=== PATIENT | male | born 1985 | race Caucasian/White ===

== ENCOUNTER 2022-05-25 14:49 | Emergency (ER) | payer SELFPAY ==
[2022-05-25 14:55] VITALS: BP 153/105; PULSE 99; RESP 18; TEMP 36.8; O2SAT 95; BMI 44.4
--- NOTE | 2022-05-25 15:16 | ED_ITS ---
HPI - Allergic Reaction General: Chief complaint: Allergic Reaction Stated complaint: lip swelling Time Seen by Provider: 05/25/22 15:16 Source: patient Mode of arrival: ambulatory Limitations: no limitations History of Present Illness: HPI narrative: 36-year-old male presents emergency room with swollen inflamed upper lip. He noticed some sores on his upper lip and his mustache she has some crusting in that area as well. 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 Given neb. Not currently taking any of antibiotics. He denies any fever sweats or chills. Yesterday he was at work using some aluminum and wiped across his mouth with a glove. This morning he woke up there is significant swelling of the upper lip. He denies any difficulty breathing no stridor no wheezing. There is swelling of the upper lip but none of the tongue. MD complaint: allergic reaction Onset (ago): hour(s) Associated symptoms: Reports facial swelling and lip swelling; Deny abdominal pain, difficulty breathing, dysphagia, dizziness, hoarseness, itching, nausea, rash, tongue swelling or vomiting Severity: moderate Treatment prior to arrival: benadryl Previous Allergic Reaction History: none Review of Systems Const: Denies: fever(s), chills, body aches, change in appetite, fatigue or malaise ENMT: Denies: hoarseness Card: Denies: chest pain, edema, dyspnea on exertion or orthopnea Resp: Denies: dyspnea, productive cough or non-productive cough GI: Denies: abdominal pain, nausea, vomiting or dysphagia : Denies: flank pain, dysuria, urinary frequency or urinary urgency Skin/Breast: Denies: rash or pruritus Neuro: Denies: dizziness All/Imm: Reports: facial swelling; Denies: tongue swelling PFSH ED PFSH: Medical History (Updated 05/26/22 @ 14:49 by Raymundo Santos DO) No pertinent past medical history Surgical History (Updated 05/26/22 @ 14:49 by Raymundo Santos DO) No pertinent past surgical history Physical Exam Const: GENERAL APPEARANCE: cooperative and comfortable ORIENTATION/CONSCIOUSNESS: Yes awake, Yes oriented to person, Yes oriented to place and Yes oriented to time HENMT: COMMON NORMALS: normocephalic, atraumatic, external ears normal, EAC's normal, TM's normal bilaterally and Normal nasal mucous membranes and turbinates present HEAD & SCALP: normocephalic and atraumatic FACE & SINUS: edema (Swelling of the upper lip slightly greater on the right side than the left ) NOSE: Normal nasal mucous membranes and turbinates present EXTERNAL EAR: Yes external ears normal EXTERNAL AUDITORY CANAL: EAC's normal TYMPANIC MEMBRANE: TM's normal bilaterally OTHER: Significant swelling of the upper lip more so on the right than the left there is some logn crusting just under the nose with some excoriated areas. Eye: COMMON NORMALS: Equal, round and reactive pupils present, EOMs intact bilaterally, conjunctivae normal and no scleral icterus CONJUNCTIVA: Yes conjunctivae normal PUPIL: Yes Equal, round and reactive pupils present Neck/C-Spine: COMMON NORMALS: full ROM, no lymphadenopathy, supple and no JVD Resp: COMMON NORMALS: normal respiratory effort, No retractions, No use of accessory muscles and clear to auscultation bilaterally AUSCULTATION: clear to auscultation bilaterally Cardio: COMMON NORMALS: no JVD, regular rate, regular rhythm and No murmurs present (Cardio) RATE: regular rate RHYTHM: regular rhythm GI: COMMON NORMALS: Soft to palpation and No hepatosplenomegaly present AUSCULTATION: Yes normoactive bowel sounds PALPATION: Yes Soft to palpation, No Tenderness to palpation present (GI), No Guarding due to palpation present (GI) and Yes No hepatosplenomegaly present Extremity: COMMON NORMALS: normal to inspection, capillary refill normal, no clubbing, cyanosis or edema, no calf tenderness and no pedal edema Neuro: SENSORIUM/ORIENTATION: Yes oriented to person, Yes oriented to place and Yes oriented to time Skin: OTHER: Long crusted lesions of the upper lip consistent with staph infection. Course Vital Signs: Vital signs: Vital Signs Temperature 97.8 F 05/25/22 17:18 Pulse Rate 81 05/25/22 17:18 Respiratory Rate 17 05/25/22 17:18 Blood Pressure 148/86 05/25/22 17:18 Pulse Oximetry 96 05/25/22 17:18 Oxygen Delivery Me thod 05/25/22 14:55 MDM - Allergic Reaction Medical Decision Making Cellulitis. Suspect staph. Given vancomycin and started on Bactrim also put him on prednisone and hydroxyzine can use ice recheck with primary care doctor in the next few days if is worsening or change symptoms return. Cultures obtained as well. Medical Records I reviewed the patient's medical records. Lab Data I reviewed the patient's lab results. : 05/25/22 15:38 05/25/22 15:38 Laboratory Results WBC 16.7 10^3/uL (4.0-10.0) H 05/25/22 15:38 RBC 5.25 10^6/uL (4.1-5.3) 05/25/22 15:38 Hgb 15.9 g/dL (11.7-16.6) 05/25/22 15:38 Hct 49.5 % (42.0-52.0) 05/25/22 15:38 MCV 94.3 fl (80-94) H 05/25/22 15:38 MCH 30.3 pg (28.0-34.0) 05/25/22 15:38 MCHC 32.1 g/dL (30.0-36.0) 05/25/22 15:38 RDW 12.3 % (12.1-15.1) 05/25/22 15:38 Plt Count 195 10^3/cmm (130-400) 05/25/22 15:38 MPV 12.1 fL (7.4-10.4) H 05/25/22 15:38 Neut % (Auto) 77.7 % 05/25/22 15:38 Lymph % (Auto) 11.5 % 05/25/22 15:38 [place] % (Auto) 8.8 % 05/25/22 15:38 Eos % (Auto) 1.3 % 05/25/22 15:38 Baso % (Auto) 0.2 % 05/25/22 15:38 Neut # (Auto) 12.99 10^3/uL (1.8-7.7) H 05/25/22 15:38 Lymph # (Auto) 1.9 10^3/uL (0.8-4.8) 05/25/22 15:38 [place] # (Auto) 1.5 10^3/uL (0.2-0.9) H 05/25/22 15:38 Eos # (Auto) 0.2 10^3/uL (0.0-0.8) 05/25/22 15:38 Baso # (Auto) 0.0 10^3/uL (0.0-0.1) 05/25/22 15:38 Nucleated RBC % (auto) 0 % 05/25/22 15:38 Nucleated RBCs # 0.0 /100WBC 05/25/22 15:38 Sodium Cancelled 05/25/22 15:38 Potassium Cancelled 05/25/22 15:38 Chloride Cancelled 05/25/22 15:38 Carbon Dioxide Cancelled 05/25/22 15:38 Anion Gap Cancelled 05/25/22 15:38 BUN Cancelled 05/25/22 15:38 Creatinine Cancelled 05/25/22 15:38 GFR Calculation Cancelled 05/25/22 15:38 Glucose Cancelled 05/25/22 15:38 Calculated Osmolality Cancelled 05/25/22 15:38 Calcium Cancelled 05/25/22 15:38 Discharge Plan Discharge Patient Disposition: Home Clinical Impression: Cellulitis of lip Condition: Stable Prescriptions: New Bactrim DS 800-160 mg tablet 1 tab PO BID 10 Days Qty: 20 0RF prednisone 20 mg tablet 20 mg PO TID Qty: 15 0RF Rx Instructions: 1 p.o. 3 times daily x3 days, 1 p.o. twice daily x2 days, 1 p.o. 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
[2022-05-25 15:48] LABS: Basophils % 0.2 %; Eosinophils # 0.2 10^3/uL (0.0-0.8); Eosinophils % 1.3 %; Hematocrit 49.5 % (42.0-52.0); Hemoglobin 15.9 g/dL (11.7-16.6); Lymphocytes # 1.9 10^3/uL (0.8-4.8); Lymphocytes % 11.5 %; Mean Corpuscular HGB Conc 32.1 g/dL (30.0-36.0); Mean Corpuscular Hemoglobin 30.3 pg (28.0-34.0); Mean Corpuscular Volume 94.3 fl (80-94); Mean Platelet Volume 12.1 fL (7.4-10.4); Monocytes # 1.5 10^3/uL (0.2-0.9); Monocytes % 8.8 %; Neutrophils # 12.99 10^3/uL (1.8-7.7); Neutrophils % 77.7 %; Nucleated Red Blood Cells % 0 %; Platelet Count 195 10^3/cmm (130-400); Red Blood Count 5.25 10^6/uL (4.1-5.3); Red Cell Distribution Width 12.3 % (12.1-15.1); White Blood Count 16.7 10^3/uL (4.0-10.0)
[2022-05-25] MEDS: diphenhydrAMINE 50 mg/mL SDV 1mL IVP (16:09)
[2022-05-25] MEDS: vancomycin 1,000 MG in sodium chloride 0.9% 250 ML 250 MG IV (16:20)
[2022-05-25 17:18] VITALS: BP 148/86; PULSE 81; RESP 17; TEMP 36.6; O2SAT 96
== END 2022-05-25 17:33 | disposition home or self-care (01) ==
PROVIDERS: Emergency Provider Family Medicine
DX: K13.0 Diseases of lips (principal)
CPT/HCPCS: 36415; 85025; 87040; 96365; 96375; 99284; J1200; J2930; J3370; J7050

== ENCOUNTER 2022-05-28 10:43 | Inpatient (IN) | payer SELFPAY ==
[2022-05-28 11:12] VITALS: BP 148/94; PULSE 110; RESP 18; TEMP 36.8; O2SAT 97; BMI 34.8
[2022-05-28 13:32] LABS: Basophils # 0.1 10^3/uL (0.0-0.1); Basophils % 0.2 %; Hematocrit 59.1 % (42.0-52.0); Hemoglobin 19.1 g/dL (11.7-16.6); Lymphocytes % 9.1 %; Mean Corpuscular HGB Conc 32.3 g/dL (30.0-36.0); Mean Corpuscular Hemoglobin 30.4 pg (28.0-34.0); Mean Corpuscular Volume 94.1 fl (80-94); Mean Platelet Volume 10.4 fL (7.4-10.4); Monocytes # 1.5 10^3/uL (0.2-0.9); Neutrophils # 18.15 10^3/uL (1.8-7.7); Neutrophils % 82.7 %; Nucleated Red Blood Cells % 0 %; Platelet Count 306 10^3/cmm (130-400); Red Blood Count 6.28 10^6/uL (4.1-5.3); Red Cell Distribution Width 12.2 % (12.1-15.1)
--- NOTE | 2022-05-28 13:40 | CT_ITS ---
WS: [id number] CT FACIAL BONES with contrast HISTORY: cellulitis, upper lip inflammation. TECHNIQUE: Images obtained from the supraorbital location through the mandible. Soft tissue and bone windows are reviewed. Coronal and sagittal reformats have also been submitted. Contrast: Omnipaque 350; 50 mL IV. DLP: 669.[address] scans at [facility] use at least one of these dose optimization techniques: automated e xposure control; mA and/or kV adjustment per patient size (includes targeted exams where dose is matc hed to clinical indication); or iterative reconstruction. COMPARISON: None available. Significant soft tissue inflammation over the upper lip and greatest to the RIGHT of midline. Marked soft tissue thickening and inflammation but no definite abscess. No adjacent dental caries is identif ied. Soft tissue inflammation extends superiorly into the base of the nasal cavity. No osseous destru ction. No bone destruction and no evidence for osteomyelitis. No air-fluid levels within the adjacent sinuse s. Small level 1 and level [address]/CT facial bones w con [id number] IMPRESSION: 1. Significant soft tissue inflammation without an abscess centered along the RIGHT upper lip. 2. No underlying dental caries identified. 3. No sinus disease. 4. Small level 1 and level 2 lymph nodes.
--- NOTE | 2022-05-28 13:46 | W.ED.GENADLT ---
HPI - General Adult General: Chief complaint: General Medical Stated complaint: cellulitis of lip, return trip Time Seen by Provider: 05/28/22 13:00 Source: patient Mode of arrival: ambulatory History of Present Illness: 36-year-old male who was seen in the emergency room several days ago. He had a large flame swollen upper lip at that time. He had some areas that look like he had a staph infection in the upper lip and his mustache with some long crusting we started him on Bactrim he was concerned he had an allergic reaction so we also did put him on a short course of steroids. He has had subjective sweats chills and fever since then he is a little bit tachycardic on arrival here the swelling in his lip is more defined now than it was not on gross appearance I suspect he has an abscess. He has been taking the oral antibiotics he was prescribed. He has noticed other areas that have come up since then 1 on the left lower flank another early lesion periumbilical at about the 10 to 11 o'clock position 2 inches from the umbilicus and then 1 on his left second toe. Denies any use of IV drugs. Onset (ago): day(s) Location: face, abdomen and lower extremity (Left second toe) Radiation: non-radiation Severity: severe Quality: aching Pain Consistency: constant Relieving factors: none Exacerbating factors: none Associated symptoms: Reports fevers/chills, malaise, nausea and rash; Deny chest pain, confusion, cough, diaphoresis, decreased appetite, dyspnea, headache(s), palpitations, seizures, short of breath, syncope, vomiting or weakness Treatments prior to arrival: other (Oral antibiotics) Review of Systems Const: Reports: fever(s), chills and malaise; Denies: fatigue or diaphoresis ENMT: Denies: throat pain, ear or mastoid pain, nasal discharge or nasal congestion Card: Denies: chest pain, palpitations or syncope Resp: Denies: dyspnea or productive cough GI: Reports: nausea; Denies: abdominal pain, vomiting or diarrhea : Denies: flank pain, difficulty urinating, dysuria, urinary frequency or urinary urgency Musc: Denies: neck pain or back pain Skin/Breast: Reports: rash Neuro: Denies: headache(s) or confusion PFSH ED PFSH: Medical History H/O intravenous drug use in remission Hepatitis C Smoking Surgical History History of ankle surgery Family History Other No significant family history Social History Smoking and tobacco status: current every day smoker Alcohol intake: never Substance/Drug Use: former Other details last substance use: Remote use, lapsed recently once in the last 3 years Lives independently: Yes Household members: none Current occupational status: employed Physical Exam Const: GENERAL APPEARANCE: cooperative and comfortable ORIENTATION/CONSCIOUSNESS: Yes awake, Yes oriented to person, Yes oriented to place and Yes oriented to time HENMT: OTHER: Marked swelling with more palpable fluctuant like mass in the upper lip to the right of the midline there is long crusting across the lip and the facial hair no active drainage. Resp: COMMON NORMALS: normal respiratory effort, No retractions, No use of accessory muscles and clear to auscultation bilaterally AUSCULTATION: clear to auscultation bilaterally Cardio: COMMON NORMALS: regular rate, regular rhythm and No murmurs present (Cardio) RATE: regular rate RHYTHM: regular rhythm GI: COMMON NORMALS: Soft to palpation and No hepatosplenomegaly present AUSCULTATION: Yes normoactive bowel sounds PALPATION: Yes Soft to palpation, No Tenderness to palpation present (GI), No Guarding due to palpation present (GI) and Yes No hepatosplenomegaly present Neuro: SENSORIUM/ORIENTATION: Yes oriented to person, Yes oriented to place and Yes oriented to time Skin: COMMON NORMALS: no rashes or lesions noted GENERAL SKIN EXAM: no rashes or lesions noted Course Vital Signs: Vital signs: Vital Signs Temperature 98.1 F 05/31/22 04:00 Pulse Rate 79 05/31/22 04:00 Respiratory Rate 16 05/31/22 06:13 Blood Pressure 130/94 05/31/22 04:00 Pulse Oximetry 95 05/31/22 04:00 Oxygen Delivery Me thod 05/31/22 04:00 MDM - General Adult Medical Decision Making Failed outpatient therapy will admit for IV antibiotics. Discussed with hospitalist orders written Medical Records I reviewed the patient's medical records. Lab Data I reviewed the patient's lab results. : 05/30/22 01:30 05/30/22 01:[address] 05/28/22 13:40 IMPRESSION: 1. Significant soft tissue inflammation without an abscess centered along the RIGHT upper lip. 2. No underlying dental caries identified. 3. No sinus disease. 4. Small level 1 and level 2 lymph nodes. Chest X-Ray 05/28/22 17:39 IMPRESSION: Unremarkable chest radiograph. Soft Tissue Ultrasound 05/29/22 13:24 IMPRESSION: 1. No abscess. 2. There is a small phlegmonous with a soft tissue tract in the LEFT lower quadrant subcutaneous soft tissue. Phlegmonous collection measures 1.1 x 0.6 cm. Laboratory Results WBC 22.0 10^3/uL (4.0-10.0) H 05/28/22 13:16 RBC 6.28 10^6/uL (4.1-5.3) H 05/28/22 13:16 Hgb 19.1 g/dL (11.7-16.6) H 05/28/22 13:16 Hct 59.1 % (42.0-52.0) H 05/28/22 13:16 MCV 94.1 fl (80-94) H 05/28/22 13:16 MCH 30.4 pg (28.0-34.0) 05/28/22 13:16 MCHC 32.3 g/dL (30.0-36.0) 05/28/22 13:16 RDW 12.2 % (12.1-15.1) 05/28/22 13:16 Plt Count 306 10^3/cmm (130-400) 05/28/22 13:16 MPV 10.4 fL (7.4-10.4) 05/28/22 13:16 Neut % (Auto) 82.7 % 05/28/22 13:16 Lymph % (Auto) 9.1 % 05/28/22 13:16 [place] % (Auto) 7.0 % 05/28/22 13:16 Eos % (Auto) 0.0 % 05/28/22 13:16 Baso % (Auto) 0.2 % 05/28/22 13:16 Neut # (Auto) 18.15 10^3/uL (1.8-7.7) H 05/28/22 13:16 Lymph # (Auto) 2.0 10^3/uL (0.8-4.8) 05/28/22 13:16 [place] # (Auto) 1.5 10^3/uL (0.2-0.9) H 05/28/22 13:16 Eos # (Auto) 0.0 10^3/uL (0.0-0.8) 05/28/22 13:16 Baso # (Auto) 0.1 10^3/uL (0.0-0.1) 05/28/22 13:16 Nucleated RBC % (auto) 0 % 05/28/22 13:16 Nucleated RBCs # 0.0 /100WBC 05/28/22 13:16 Sodium 136 mmol/L (136-145) 05/28/22 15:02 Potassium 4.1 mmol/L (3.5-5.1) 05/28/22 15:02 Chloride 100 mmol/L (98-107) 05/28/22 15:02 Carbon Dioxide 25 mmol/L (22-29) 05/28/22 15:02 Anion Gap 15.1 (5-19) 05/28/22 15:02 BUN 12 mg/dL (6-20) 05/28/22 15:02 Creatinine 0.8 mg/dL (0.7-1.2) 05/28/22 15:02 GFR Calculation 109.4 mL/min (90-130) 05/28/22 15:02 Glucose 166 mg/dL (65-115) H 05/28/22 15:02 Estimat Average Glucose 117 05/28/22 13:16 Hemoglobin A1c 5.7 % (4.0-6.0) 05/28/22 13:16 Calculated Osmolality 286 mOsm/kg (285-295) 05/28/22 15:02 Calcium 8.1 mg/dL (8.5-10.5) L 05/28/22 15:02 C-Reactive Protein 3.0 mg/L (0.0-4.9) 05/28/22 15:02 Discharge Plan Discharge Patient Disposition: Admitted As Inpatient Admit Provider: Low Celis Clinical Impression: Cellulitis of lip, H/O intravenous drug use in remission Condition: Stable Coding Level of Care Code 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
[2022-05-28] MEDS: iohexol 350 mg/mL 100 mL Btl IV (14:32)
[2022-05-28 15:29] LABS: Blood Urea Nitrogen 12 mg/dL (6-20); Calcium 8.1 mg/dL (8.5-10.5); Carbon Dioxide 25 mmol/L (22-29); Chloride 100 mmol/L (98-107); Creatinine Clr Calc Pharmacy 149.1194; Glomerular Filtration Rate 109.4 mL/min (90-130); Glucose 166 mg/dL (65-115); Osmolality Calculated 286 mOsm/kg (285-295); Sodium 136 mmol/L (136-145)
[2022-05-28 15:35] LABS: Anion Gap 15.1 (5-19); Potassium 4.1 mmol/L (3.5-5.1)
[2022-05-28] MEDS: ibuprofen 600 mg Tablet PO (17:19)
--- NOTE | 2022-05-28 17:21 | PM.HP ---
Providers/Chief Complaint Admitting Physician: Low Celis Chief Complaint: cellulitis of lip, return trip History of Present Illness Pleasant 36-year-old gentleman smoker of about half pack per day, with hepatitis C reports not yet treated, history of IV methamphetamine use disorder, remote, but states had 1 relapse within the last 3 years, sometime recently but states more remote than his current symptoms of painful swelling, erythema, some crusting of the upper lip, started on the left side, progressed across the midline to the right side, for which he had received prescription for Bactrim, prednisone during ER visit on 05/25, states started Bactrim on Saturday, has not seen very significant improvement. Initial swelling and inflammation appears to have started after possibly rubbing a glove with aluminum shavings at work across his upper lip. Denies any prior significant skin infections. Denies diabetes. With regards to injection methamphetamine use, was injected into the right arm in the past. States he is not currently sexually active. Denies any contacts who have similar infection. Denies any travel. Since his last visit he has now also developed 2 lesions on right and left sides of his abdomen, pustular in appearance, as well as additional lesion near the base of his second left toe. He reports feeling subjective fever, sweats, chills, was not measured temperature. He is afebrile here, but with leukocytosis 21,000, predominantly neutrophilic, as well as pulse 110. Denies history of diabetes. Glucose is 166. Face CT with significant soft tissue inflammation without an abscess centered along the right upper lip. No underlying dental caries. No sinus disease. Small level 1 and level 2 lymph nodes. Review of Systems Const: Reports: chills, malaise and night sweats; Denies: fever(s) Eyes: Denies: change in vision, eye discomfort or eye redness ENMT: Reports: swelling of lips/tongue (upper lip); Denies: throat pain, oral sores or ear or mastoid pain Card: Denies: chest pain, edema, pre-syncope or dyspnea on exertion Resp: Denies: dyspnea, productive cough, change in phlegm color or hemoptysis GI: Denies: abdominal pain, nausea, vomiting, diarrhea, constipation, hematochezia or melena : Denies: flank pain, difficulty urinating, urinary frequency or hematuria Musc: Denies: back pain, joint swelling or joint redness Skin/Breast: Reports: rash, erythema, skin tenderness, skin swelling, sores and new lesions Neuro: Denies: headache(s), numbness in extremities, weakness in extremities, dizziness, confusion or seizure-like activity Endo: Denies: polyuria or polydipsia Boris/Lymph: Denies: easy bleeding or tender lymph nodes All/Imm: Denies: urticaria or tongue swelling Medications/Allergies Home Medications Medication Instructions Recorded Confirmed Last Taken Type hydroxyzine HCl 25 mg tablet 25 mg PO QID PRN itching/swelling 05/25/22 05/28/22 Unknown Rx #20 tabs prednisone 20 mg tablet 20 mg PO TID #15 tabs 05/25/22 05/28/22 05/28/22 Rx sulfamethoxazole 800 1 tab PO BID 10 days #20 tabs 05/25/22 05/28/22 05/28/22 Rx mg-trimethoprim 160 mg tablet (Bactrim DS) cyclobenzaprine 10 mg tablet 10 mg PO TID PRN Muscle Spasm 05/28/22 05/28/22 Unknown History PFSH Acute PFSH: Medical History H/O intravenous drug use in remission Hepatitis C Smoking Surgical History History of ankle surgery Family History (Updated 05/28/22 @ 17:26 by Low Celis MD) Other No significant family history Social History (Updated 05/28/22 @ 17:28 by Low Celis MD) Smoking and tobacco status: current every day smoker Alcohol intake: never Substance/Drug Use: former Other details last substance use: Remote use, lapsed recently once in the last 3 years Lives independently: Yes Household members: none Current occupational status: employed Vitals/I&O/Wt Last Vital Signs Temp 98.2 F 05/28/22 11:12 Pulse 110 H 05/28/22 11:12 Resp 18 05/28/22 11:12 BP 148/94 05/28/22 11:12 Pulse Ox 97 05/28/22 11:12 O2 Del Method 05/28/22 11:12 Weight last 48 hrs Weight 103.873 kg Physical Exam Const: COMMON NORMALS: patient oriented x3 and alert GENERAL APPEARANCE: cooperative ORIENTATION/CONSCIOUSNESS: Yes awake HENMT: COMMON NORMALS: oropharynx normal Neck/C-Spine: COMMON NORMALS: no JVD Resp: COMMON NORMALS: normal respiratory effort and clear to auscultation bilaterally AUSCULTATION: clear to auscultation bilaterally Cardio: COMMON NORMALS: no JVD, regular rhythm, S1 normal heart sound present, S2 normal heart sound present and No murmurs present (Cardio) RHYTHM: regular rhythm HEART SOUNDS: S1 normal heart sound present and S2 normal heart sound present GI: COMMON NORMALS: Normal to inspection, nondistended, normoactive bowel sounds present, Soft to palpation and non-tender PALPATION: Yes Soft to palpation Extremity: COMMON NORMALS: no joint enlargement and no pedal edema Neuro: COMMON NORMALS: patient oriented x3 and moves all extremities SENSORIUM/ORIENTATION: Yes alert Skin: GENERAL SKIN EXAM: no rashes or lesions noted OTHER: Swelling, mild erythema, mild scaling of upper lip mostly toward the center, slightly more to the right. Small aphthous ulcer behind upper incisors. Small pustular deroofed lesions right and left mid abdomen up to 1 cm in size. No significant surrounding erythema, no fluctuance. Small shallow ulceration with some sanguinous discharge dorsal medial aspect of proximal second left toe. Data : 05/28/22 13:16 05/28/22 15:02 A&P Assessment and plan (1) Cellulitis of lip: Possible sepsis with neutrophilic leukocytosis 22,000, sinus tachycardia 110. Appears to not have responded to outpatient antibiotics treatment with Bactrim since Saturday. Collect blood culture. IV antibiotics with vancomycin, cefepime. Appears to have hyperglycemia, difficult to tell at this time whether diabetes are secondary to steroid. Check A1c. Possible staphylococcal infection. Reported some impetiginous changes previously. Additionally history of injection methamphetamine use, check HIV. Concern for possible bacteremia with multifocal lesions. Reassess blood cultures. Collect wound culture from abdominal lesions which appear more pustular. Additionally collect viral culture. Collect monitor pox PCR. Isolation. (2) Pustular lesion: On the abdomen, as well as additional more flat lesion on proximal dorsal medial second left toe. (3) Smoking: Smoking addiction, discussed with him regarding cessation. Nicotine replacement as needed. (4) H/O intravenous drug use in remission: Reports remote history of IV substance use disorder, used to inject methamphetamine into the arm. Reports has had 1 relapse fairly recently, but before any of the other symptoms currently started. Reports has had only 1 relapse in the last 3 years. Has active hepatitis C not yet treated. Discussed with him regarding assessing HIV Plan Hepatitis C: Will need follow-up for treatment. Attestations Medical Necessity Statement*: Admission of over 2 midnights anticipated for assessment of management of unresolving area of cellulitis, possible sepsis, with new lesions on the abdomen, second left toe. 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
[2022-05-28 17:39] VITALS: BP 158/110; PULSE 88; RESP 16; TEMP 36.4; O2SAT 97
--- NOTE | 2022-05-28 17:39 | XR_ITS ---
WS: [id number] Exam: XR chest 1V portable [id number] Date/Time of Exam: 05/28/2022 6:00 PM Reason For Exam: Subjective fever, leukocytosis, tachycardia, wheeze No priors. Findings: The lungs are clear and fully expanded. Costophrenic angles are sharp. No infiltrates. Bronchovascula r relief appears normal. Cardiac silhouette is unremarkable. Bony elements are intact. XR/XR chest 1V portable [id number] IMPRESSION: Unremarkable chest radiograph.
[2022-05-28 17:55] VITALS: BMI 43.2
[2022-05-28] MEDS: nicotine 14 mg Patch 1 PATCH TRANSDERMA (18:50)
[2022-05-28] MEDS: cefepime 2,000 MG in sodium chloride 0.9% (plus) 50 ML 100 MG IV (18:51)
[2022-05-28] MEDS: lactated ringers 1,000 ML 100 ML IV (18:51)
[2022-05-28 19:39] LABS: Estmated Average Glucose 117; Hemoglobin A1C 5.7 % (4.0-6.0)
[2022-05-28 20:00] VITALS: BP 130/83; PULSE 97; RESP 17; TEMP 36.6; O2SAT 98
[2022-05-28 21:32] LABS: Lactic Sepsis W/Reflex 1.9 mmol/L (0.5-2.2)
[2022-05-28 22:35] LABS: HIV 1 & 2 Antibody Non-Reactive (Non-Reactiv); HIV 1 & 2 Antigen Non-Reactive (Non-Reactiv)
[2022-05-29] VITALS (9 sets, daily range): BP systolic 133–159; BP diastolic 81–98; PULSE 71–103; RESP 15–20; TEMP 36.3–37.1; O2SAT 95–98
[2022-05-29] MEDS: morphine 4 mg/mL SDV 1 mL IVP ×2 (02:29→21:05)
[2022-05-29] MEDS: ibuprofen 600 mg Tablet PO ×4 (03:22→22:19)
[2022-05-29] MEDS: cefepime 2,000 MG in sodium chloride 0.9% (plus) 50 ML 100 MG IV ×2 (06:05→18:54)
[2022-05-29] MEDS: lactated ringers 1,000 ML 100 ML IV (06:05)
--- NOTE | 2022-05-29 13:23 | PM.PN ---
Subjective Subjective: He is feeling somewhat congested around the front part of his face, still pain at the swelling of his upper lip. Perhaps slightly better than yesterday. Discussed with him results of CT of the face. Discussed with him to request for lidocaine, discussed concern regarding opioid use given past history of IV drug use disorder. Discussed risks. In case we cannot manage pain with conservative agents, possibly then may have no choice to use opioids. Unable to get blood draw this morning despite multiple sticks, deferred until tomorrow. Vitals/I&O/Wt Last Vital Signs Temp 97.9 F 05/29/22 11:08 Pulse 96 05/29/22 11:08 Resp 18 05/29/22 11:08 BP 159/94 05/29/22 11:08 Pulse Ox 95 05/29/22 11:08 O2 Del Method 05/29/22 11:08 05/28/22 05/29/22 05/29/22 22:59 06:59 14:59 Intake Total 540 / 540 1300 / 1840 360 / 360 Balance 540 / 540 1300 / 1840 360 / 360 Weight last 48 hrs Weight 129.092 kg Weight 103.873 kg Physical Exam Const: COMMON NORMALS: patient oriented x3 and alert GENERAL APPEARANCE: cooperative ORIENTATION/CONSCIOUSNESS: Yes awake HENMT: COMMON NORMALS: oropharynx normal Neck/C-Spine: COMMON NORMALS: no JVD Resp: COMMON NORMALS: normal respiratory effort and clear to auscultation bilaterally AUSCULTATION: clear to auscultation bilaterally Cardio: COMMON NORMALS: no JVD, regular rhythm, S1 normal heart sound present, S2 normal heart sound present and No murmurs present (Cardio) RHYTHM: regular rhythm HEART SOUNDS: S1 normal heart sound present and S2 normal heart sound present GI: COMMON NORMALS: Normal to inspection, nondistended, normoactive bowel sounds present, Soft to palpation and non-tender PALPATION: Yes Soft to palpation Extremity: COMMON NORMALS: no joint enlargement and no pedal edema Neuro: COMMON NORMALS: patient oriented x3 and moves all extremities SENSORIUM/ORIENTATION: Yes alert Skin: COMMON NORMALS: no rashes or lesions noted GENERAL SKIN EXAM: no rashes or lesions noted OTHER: Swelling, mild erythema, mild scaling of upper lip mostly toward the center, slightly more to the right. Small aphthous ulcer behind upper incisors. Small pustular deroofed lesions right and left mid abdomen up to 1 cm in size. No significant surrounding erythema, no fluctuance. 5mm shallow ulceration with some sanguinous discharge dorsal medial aspect of proximal second left toe. Data : 05/28/22 13:16 05/28/22 15:02 Micro: Microbiology 05/28/22 20:28 Blood Culture - Preliminary Blood SPECIMEN COLLECTED A&P Assessment and plan (1) Cellulitis of lip: Could not get blood draw today, but tachycardia with improvement. Possible sepsis with improvement. Persistent swelling of upper lip, no abscess. Pustular lesions on the abdomen, left side abdomen somewhat more engorged, will assess with ultrasound to exclude underlying pus collection. Additional lesion on second left toe with shallow ulceration, purulent discharge. Follow blood culture. IV antibiotics with vancomycin, cefepime. Appears to have hyperglycemia likely secondary to steroid. Normal A1c. Suspected staphylococcal infection. Reported some impetiginous changes at the beginning. Additionally history of injection methamphetamine use, check HIV. Concern for possible bacteremia with multifocal lesions. Reassess blood cultures. Collect wound culture from abdominal lesions which appear more pustular. Additionally collect viral culture. Less likely monkey pox, Orthopox PCR pending. Isolation. (2) Pustular lesion: On the abdomen, as well as additional more flat lesion on proximal dorsal medial second left toe. (3) Smoking: Smoking addiction, discussed with him regarding cessation. Nicotine replacement as needed. (4) H/O intravenous drug use in remission: Reports remote history of IV substance use disorder, used to inject methamphetamine into the arm. Reports has had 1 relapse fairly recently, but before any of the other symptoms currently started. Reports has had only 1 relapse in the last 3 years. Has active hepatitis C not yet treated. HIV antibody nonreactive. PCR pending. Plan Hepatitis C: Will need follow-up for treatment. Attestations Medical Necessity Statement*: Continue admission for assessment of persistent cellulitis, multifocal purulent lesions, without response to outpatient antibiotic treatment. 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
--- NOTE | 2022-05-29 13:24 | US_ITS ---
WS: [id number] ULTRASOUND SOFT TISSUES LEFT lower quadrant abdomen. HISTORY: L side abd wall pustule - assess for any pus pocket COMPARISON: None available. TECHNIQUE: 2-D and color Doppler imaging is submitted. At the level of the iliac crest there is an open wound. There is a soft tissue tract containing a sma ll amount of fluid extending 2 cm deep. The entire collection measures 1.6 x 1.8 x 2.0 cm. Mild phleg monous formation just beneath the subcutaneous layer measures 1.1 x 0.6 cm. The soft tissue tract ext ends deep from the phlegmon. US/US soft tissue/extremity 45351 IMPRESSION: 1. No abscess. 2. There is a small phlegmonous with a soft tissue tract in the LEFT lower maria fernanda drant subcutaneous soft tissue. Phlegmonous collection measures 1.1 x 0.6 cm.
[2022-05-29] MEDS: nicotine 14 mg Patch 1 PATCH TRANSDERMA (18:30)
--- NOTE | 2022-05-29 18:32 | PC.NURSE ---
pt slept nearly all day only awke for meals and bathroom ...was given prn ibuprofen 2 x this shift and lidcaine jelly 1x tis shift...these appeaed to allivate his pain
[2022-05-30] VITALS (11 sets, daily range): BP systolic 138–171; BP diastolic 76–109; PULSE 77–102; RESP 16–18; TEMP 36.6–36.9; O2SAT 97–98
[2022-05-30 01:40] LABS: Basophils % 0.3 %; Eosinophils # 0.2 10^3/uL (0.0-0.8); Eosinophils % 1.5 %; Hematocrit 50.5 % (42.0-52.0); Hemoglobin 16.3 g/dL (11.7-16.6); Lymphocytes # 2.7 10^3/uL (0.8-4.8); Lymphocytes % 18.5 %; Mean Corpuscular HGB Conc 32.3 g/dL (30.0-36.0); Mean Corpuscular Hemoglobin 30.4 pg (28.0-34.0); Mean Platelet Volume 10.1 fL (7.4-10.4); Monocytes # 1.1 10^3/uL (0.2-0.9); Monocytes % 7.6 %; Neutrophils # 10.61 10^3/uL (1.8-7.7); Neutrophils % 71.5 %; Nucleated Red Blood Cells % 0 %; Platelet Count 250 10^3/cmm (130-400); Red Blood Count 5.37 10^6/uL (4.1-5.3); Red Cell Distribution Width 12.1 % (12.1-15.1); White Blood Count 14.8 10^3/uL (4.0-10.0)
[2022-05-30 02:03] LABS: Vancomycin Trough 10.1 ug/mL (10-15)
[2022-05-30 02:04] LABS: Alanine Aminotransferase 42 U/L (0-41); Albumin Level 3.3 g/dL (3.5-5.2); Alkaline Phosphatase 72 U/L (40-130); Anion Gap 14.9 (5-19); Aspartate Amino Transferase 12 U/L (0-40); Blood Urea Nitrogen 13 mg/dL (6-20); Calcium 8.7 mg/dL (8.5-10.5); Carbon Dioxide 25 mmol/L (22-29); Chloride 103 mmol/L (98-107); Glomerular Filtration Rate 152.4 mL/min (90-130); Glucose 154 mg/dL (65-115); Osmolality Calculated 291 mOsm/kg (285-295); Potassium 3.9 mmol/L (3.5-5.1); Sodium 139 mmol/L (136-145); Total Bilirubin 0.5 mg/dL (0.15-1.2); Total Protein 6.3 g/dL (6.6-8.7)
[2022-05-30] MEDS: morphine 4 mg/mL SDV 1 mL IVP ×4 (02:17→18:03)
[2022-05-30] MEDS: ibuprofen 600 mg Tablet PO ×2 (04:19→17:34)
[2022-05-30] MEDS: cefepime 2,000 MG in sodium chloride 0.9% (plus) 50 ML 100 MG IV ×2 (05:57→17:34)
--- NOTE | 2022-05-30 11:23 | PC.NURSE ---
I reported the high bp to the nurse 171/109 166/109
--- NOTE | 2022-05-30 11:30 | PC.NURSE ---
provider notified of pt's bp of 166/109.
--- NOTE | 2022-05-30 12:26 | P.PN_ITS ---
Subjective Subjective: Still bothered by pain in the swelling of his lip, had just had lidocaine applied just before my visit. Denies noticing any additional lesions. Reported some drainage from pustular lesion on the left side abdomen, no further drainage. Discussed with him no abscess noted on ultrasound. Lesion a ppears fainter red color today. Vitals/I&O/Wt Last Vital Signs Temp 97.9 F 05/30/22 11:22 Pulse 82 05/30/22 11:22 Resp 18 05/30/22 11:22 BP 166/109 05/30/22 11:23 Pulse Ox 98 05/30/22 11:22 O2 Del Method 05/30/22 11:22 05/29/22 05/30/22 05/30/22 22:59 06:59 14:59 Intake Total 300 / 2041.667 300 / 2341.667 610 / 610 Balance 300 / 2041.667 300 / 2341.667 610 / 610 Weight last 48 hrs Weight 129.092 kg Physical Exam Const: COMMON NORMALS: patient oriented x3 and alert GENERAL APPEARANCE: cooperative ORIENTATION/CONSCIOUSNESS: Yes awake HENMT: COMMON NORMALS: oropharynx normal Neck/C-Spine: COMMON NORMALS: no JVD Resp: COMMON NORMALS: normal respiratory effort and clear to auscultation bilaterally AUSCULTATION: clear to auscultation bilaterally Cardio: COMMON NORMALS: no JVD, regular rhythm, S1 normal heart sound present, S2 normal heart sound present and No murmurs present (Cardio) RHYTHM: regular rhythm HEART SOUNDS: S1 normal heart sound present and S2 normal heart sound present GI: COMMON NORMALS: Normal to inspection, nondistended, normoactive bowel sounds present, Soft to palpation and non-tender PALPATION: Yes Soft to palpation Extremity: COMMON NORMALS: no joint enlargement and no pedal edema Neuro: COMMON NORMALS: patient oriented x3 and moves all extremities SENSORIUM/ORIENTATION: Yes alert Skin: COMMON NORMALS: no rashes or lesions noted GENERAL SKIN EXAM: no rashes or lesions noted OTHER: Swelling, mild erythema, mild scaling of upper lip mostly toward the center, slightly more to the right. Small aphthous ulcer behind upper incisors. Small pustular deroofed lesions right and left mid abdomen up to 1 cm in size. Left-sided lesion less intensely red today. No significant surrounding erythema, no fluctuance. 5mm shallow ulceration with some purulent discharge dorsal medial aspect of proximal second left toe. Data : 05/30/22 01:30 05/30/22 01:30 Micro: Microbiology 05/28/22 20:28 Blood Culture - Preliminary Blood NEGATIVE TO DATE A&P Assessment and plan (1) Cellulitis of lip: Slight improvement in the lesion on left side abdomen. Additional minimal decrease in swelling of the lip, although swelling persists. Discussed with him results of ultrasound, no abscess noted in left side abdominal lesion. So far no growth on either the original or repeat blood cultures. Pending wound cultures, pending viral culture and orthopox studies. Persistent leukocytosis 14.8, but tachycardia so far resolved. Sepsis likely resolved. CRP is normal. Persistent swelling of upper lip, no abscess. Pustular lesions on the abdomen, left side abdomen somewhat more engorged, will assess with ultrasound to exclude underlying pus collection. Additional lesion on second left toe with shallow u lceration, purulent discharge. Follow blood culture. Continue IV antibiotics with vancomycin, cefepime. Appears to have hyperglycemia likely secondary to steroid. Normal A1c. Suspected staphylococcal infection. Reported some impetiginous changes at the beginning. Additionally history of injection methamphetamine use, check HIV. Concern for possible bacteremia with multifocal lesions. Reassess blood cultures. Isolation. Topical lidocaine as needed for pain control, Tylenol, Profen, morphine for severe pain. (2) Pustular lesion: On the abdomen, as well as additional more flat lesion on proximal dorsal medial second left toe. (3) Smoking: Smoking addiction, discussed with him regarding cessation. Nicotine replacement as needed. (4) H/O intravenous drug use in remission: Reports remote history of IV substance use disorder, used to inject methamphetamine into the arm. Reports has had 1 relapse fairly recently, but before any of the other symptoms currently started. Reports has had only 1 relapse in the last 3 years. Has active hepatitis C not yet treated. HIV antibody nonreactive. PCR pending. Plan Hepatitis C: Will need follow-up for treatment. Attestations Medical Necessity Statement*: Continue admission for assessment management of skin infections unresponsive to outpatient management with possible sepsis at presentation. 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
[2022-05-30] MEDS: nicotine 14 mg Patch 1 PATCH TRANSDERMA (17:33)
[2022-05-31] VITALS (7 sets, daily range): BP systolic 122–167; BP diastolic 79–94; PULSE 63–90; RESP 16–18; TEMP 36.7; O2SAT 95–98
[2022-05-31] MEDS: ibuprofen 600 mg Tablet PO ×3 (01:58→20:15)
[2022-05-31] MEDS: cefepime 2,000 MG in sodium chloride 0.9% (plus) 50 ML 100 MG IV ×2 (05:45→17:13)
[2022-05-31] MEDS: morphine 4 mg/mL SDV 1 mL IVP ×2 (06:13→13:13)
[2022-05-31] MEDS: HYDROcodone-acetaminophen 5-325 mg Tablet 1 TAB PO ×2 (10:19→17:12)
--- NOTE | 2022-05-31 10:38 | PC.CHAP ---
Pastoral Care Encounter/Spiritual Assessment Type of Contact [] Declined grocery caddy visit [] Patient/Family/Request visit [] Outpatient visit [] Follow-up visit [] Physician referral [] Code/Alert [] Routine visit [] Staff referral [] Actively dying [] Patient sleeping [] Family support [] [] Out of room [] Palliative care [] [] Receiving care in room [] Pre-surgical visit [] Trauma [] Long length of stay [] ICU visit [x] Other: Isolation Relational/Emotional Strength [] Patient feels connected with others/family/visitors/staff [] Distress [] Loneliness/isolation [] Abandonment Spirituality of Patient [] Person of Ashia [] Attends [employer] Witness of their Ashia [] Believes in Prayer [] Reads Bible or Mu-Ism materials [] There are Spiritual issues to be addressed Stem Maker Interventions [] Prayer [] Active listening [] Non-anxious presence [] Spiritual/emotional support [] Crisis/trauma care [] Spiritual counseling [] Bereavement support [] Provided bereavement packet [] Provided Bible/devotional materials [] Provided toy/stuffed animal, coloring book to patient or family member [] Provided Communion [] Anointing/[place] [] Salvation [] Completed spiritual assessment [] Other: Impact on Illness or Injury [] Angry [] Fearful [] Anxious [] Often cries [] Exhaustion [] Unable to work [] Unable to attend orthodox [] Unable to walk/stand [] Unable to read [] Unable to drive [] Unable to eat/drink [] Unable to sleep [] Unable to be with family [] Patient intubated [] Other: Summary Isolation Time spent with patient 5 mins
--- NOTE | 2022-05-31 11:00 | P.PN_ITS ---
Subjective Subjective: Persistent swelling, pain of the upper lip, with some irritation consistent teeth, now small mount of bleeding at abrasion site. Improving lesions/pustules on his abdomen. Mild improvement on second toe, still purulent drainage. Vitals/I&O/Wt Last Vital Signs Temp 98.1 F 05/31/22 04:00 Pulse 63 05/31/22 08:00 Resp 18 05/31/22 08:00 BP 167/94 05/31/22 08:00 Pulse Ox 96 05/31/22 08:00 O2 Del Method 05/31/22 08:00 05/30/22 05/31/22 05/31/22 22:59 06:59 14:59 Intake Total 780 / 1870 300 / 2170 240 / 240 Balance 780 / 1870 300 / 2170 240 / 240 Physical Exam Const: COMMON NORMALS: patient oriented x3 and alert GENERAL APPEARANCE: cooperative ORIENTATION/CONSCIOUSNESS: Yes awake HENMT: COMMON NORMALS: oropharynx normal Neck/C-Spine: COMMON NORMALS: no JVD Resp: COMMON NORMALS: normal respiratory effort and clear to auscultation bilaterally AUSCULTATION: clear to auscultation bilaterally Cardio: COMMON NORMALS: no JVD, regular rhythm, S1 normal heart sound present, S2 normal heart sound present and No murmurs present (Cardio) RHYTHM: regular rhythm HEART SOUNDS: S1 normal heart sound present and S2 normal heart sound present GI: COMMON NORMALS: Normal to inspection, nondistended, normoactive bowel sounds present, Soft to palpation and non-tender PALPATION: Yes Soft to palpation Extremity: COMMON NORMALS: no joint enlargement and no pedal edema Neuro: COMMON NORMALS: patient oriented x3 and moves all extremities SENSORIUM/ORIENTATION: Yes alert Skin: COMMON NORMALS: no rashes or lesions noted GENERAL SKIN EXAM: no rashes or lesions noted OTHER: Swelling, mild erythema, mild scaling of upper lip mostly toward the center, slightly more to the right. Small aphthous ulcer behind upper incisors. Small pustular deroofed lesions right and left mid abdomen up to 1 cm in size. Left-sided lesion less intensely red today. No significant surrounding erythema, no fluctuance. 5mm shallow ulceration with some purulent discharge dorsal medial aspect of proximal second left toe. Data : 05/30/22 01:30 05/30/22 01:30 Micro: Microbiology 05/28/22 22:10 Gram Stain - Final Abdomen Wound Culture - Preliminary Coag positive Staphylococcus A&P Assessment and plan (1) Cellulitis of lip: Has had persistently high doses, with improvement in heart rate. Does not appear to have sepsis any further. Still no improvement in lesion of his upper lip, still with pain, significant swelling. Some abrasion currently, possibly against his teeth while eating. Will de-escalate diet to ground meats. Soft. Pustules/lesions on his abdomen are now showing improvement. Still purulent discharge from left second toe lesion, although less erythema around it. We will collect additional wound culture from there. Discussed with him we are growing coagulase positive staph from wound culture. Blood cultures remain negative. Based on this suspicion is still that he was presenting with an improving staphylococcal infection, at presentation with concern for progression to sepsis. Other etiologies appear less likely, although viral culture, Ortho pox PCR still pending. CRP was normal. Lesions do not appear like purpura from cryoglobulinemia. There is no further new lesions. Concern for possible MRSA or other resistant organism. In case we can get results of the culture, and in case he is showing further improvement, likely may be able to discharge home with oral antibiotic and outpatient follow-up. Appears to have hyperglycemia likely secondary to steroid. Normal A1c. Additionally history of injection methamphetamine use, negative serology for HIV, pending PCR. Initially concern for possible bacteremia with multifocal lesions but blood cultures repeatedly negative. Isolation. Topical lidocaine did not help, Tylenol, ibuprofen, did require morphine. Switch to hydrocodone. (2) Pustular lesion: On the abdomen, as well as additional more flat lesion on proximal dorsal medial second left toe. (3) Smoking: Smoking addiction, discussed with him regarding cessation. Nicotine replacement as needed. (4) H/O intravenous drug use in remission: Reports remote history of IV substance use disorder, used to inject methamphetamine into the arm. Reports has had 1 relapse fairly recently, but before any of the other symptoms currently started. Reports has had only 1 relapse in the last 3 years. Has active hepatitis C not yet treated. HIV antibody nonreactive. PCR pending. Plan Hepatitis C: Will need follow-up for treatment. Attestations Medical Necessity Statement*: Continue admission for assessment of management of multifocal purulent lesions of unclear etiology, on presentation with suspected sepsis, suspected staphylococcal infection. 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
[2022-05-31] MEDS: nicotine 14 mg Patch 1 PATCH TRANSDERMA (17:13)
[2022-06-01] VITALS: BP 119/75; PULSE 81; RESP 17; TEMP 36.6; O2SAT 97
[2022-06-01] MEDS: HYDROcodone-acetaminophen 5-325 mg Tablet 1 TAB PO ×2 (02:13→10:16)
[2022-06-01 04:00] VITALS: BP 118/78; PULSE 86; RESP 17; TEMP 36.6; O2SAT 95
[2022-06-01] MEDS: cefepime 2,000 MG in sodium chloride 0.9% (plus) 50 ML 100 MG IV (05:11)
[2022-06-01] MEDS: ibuprofen 600 mg Tablet PO (05:11)
[2022-06-01 08:00] VITALS: BP 154/92; PULSE 86; RESP 18; TEMP 36.6; O2SAT 97
[2022-06-01 10:27] VITALS: BP 154/92; PULSE 86; RESP 18; TEMP 36.6; O2SAT 97
--- NOTE | 2022-06-01 10:29 | P.DS_ITS ---
Discharge Providers Date of Admission: 05/28/22 15:12 Date of Discharge: June 01, 2022 Attending Provider at Admission: Low Celis Attending Provider at Discharge: Low Celis Diagnoses at Discharge Discharge Diagnosis (1) Cellulitis of lip: Status: Acute (2) Pustular lesion: Status: Acute (3) Smoking: Status: Acute (4) H/O intravenous drug use in remission: Status: Acute Reason for Visit Reason for Visit: cellulitis of lip, return trip Hospital Course Hospital Course Pleasant 36-year-old gentleman with history of hepatitis C, remote history of intravenous methamphetamine use, noting one relapse several weeks ago, smoking addiction, was admitted for assessment management due to an improving cellulitis, swelling of the upper lip, as well as pustular wounds on left and right side mid abdomen, as well as purulent ulceration on second left toe. He had initially presented to ER on 05/25 at which time blood cultures were collected and he was given a prescription for Bactrim. He returned to the hospital 3 days later with persistent swelling as well as the new lesions on his abdomen and second left toe. The initial lesion on his lip reportedly had impet igo like crusting on the first visit. He did not remember vesicular lesions. On presentation with leukocytosis, tachycardia, possible sepsis. Blood cultures were repeated. He was started on vancomycin, cefepime. HIV serology was checked and was negative. PCR was sent out and still pending. Additional studies included wound cultures which subsequently grew MRSA. He was also kept on isolation precautions, and additionally assessed with viral culture, Ortho pox PCR for possibility of antibiotics given multifocal pustular lesions. As discussed with him with concern for possible bacteremia due to recent relapse of injection use methamphetamine, although he states only 1 time, discussed with him risks of intravenous injection. He states that he follows with a addiction counselor, states that he is no longer using, I offered him additional consideration of rehabilitation which he currently declines. Please revisit with him, continue to support abstinence from intravenous drug use. Please follow-up blood cultures, initial culture from 05/25 had shown no growth. Repeat culture this admission is still pending, so far no growth. He continues to have swelling of his upper lip, although it is perhaps slightly smaller than before. No abscess was noted on initial CT. He does appear to be irritated the lesion with chewing, so is recommended to have mechanical soft, ground meats for now, and intermittently picks at the lesion which was discussed with him to avoid. Abdominal lesions have been healing up quite nicely and are now reaching nearly resolution. Second left toe lesion persists with some purulence, discussed with him to continue dressing changes, clean daily, dry, apply Hydrofera Blue, cover with adhesive dressing. He is given prescription to complete 10 days of Bactrim. He requested for a fresh script. He also states that ibuprofen and Tylenol alone have not been sufficient to treat the bothersome pain in his upper lip, and has requested for additional low-dose hydrocodone at discharge. Discussed with him concerns regarding potential addiction with this medication, especially in the setting of known prior addiction, he verbalized that he is aware of the concerns, but still would like to continue with the medication as pain wakes him up at night. Discussed will only use limited supply, and he should discontinue soon as it is not needed due to the risks. Please reassess. He is additionally referred for follow-up with wound care, as well as assessment by dermatology given multifocal pustular lesions. Please follow-up pending blood culture, pending viral culture as well as Ortho pox PCR. Remain vigilant in case of fevers, further lesions or any other suspicious signs that may negate residual infection or bacteremia or possibly with fresh infection in case of additional relapse to intravenous injections. Please revisit with him regarding hepatitis C, consider referral for treatment. Please revisit regarding smoking and encourage cessation. Physical Exam Const: COMMON NORMALS: patient oriented x3 and alert GENERAL APPEARANCE: cooperative ORIENTATION/CONSCIOUSNESS: Yes awake HENMT: COMMON NORMALS: oropharynx normal Neck/C-Spine: COMMON NORMALS: no JVD Resp: COMMON NORMALS: normal respiratory effort and clear to auscultation bilaterally AUSCULTATION: clear to auscultation bilaterally Cardio: COMMON NORMALS: no JVD, regular rhythm, S1 normal heart sound present, S2 normal heart sound present and No murmurs present (Cardio) RHYTHM: regular rhythm HEART SOUNDS: S1 normal heart sound present and S2 normal heart sound present GI: COMMON NORMALS: Normal to inspection, nondistended, normoactive bowel sounds present, Soft to palpation and non-tender PALPATION: Yes Soft to palpation Extremity: COMMON NORMALS: no joint enlargement and no pedal edema Neuro: COMMON NORMALS: patient oriented x3 and moves all extremities SENSORIUM/ORIENTATION: Yes alert Skin: COMMON NORMALS: no rashes or lesions noted GENERAL SKIN EXAM: no rashes or lesions noted OTHER: Swelling, mild erythema, mild scaling of upper lip mostly toward the center, slightly more to the right. Small amount of dry scaly epidermis, small eschar at mid vermilion. Resolved and now healed pustular lesion on the right side of the abdomen, healing, resolving small pustular lesion of left side of the abdomen, no longer with any ulceration, no drainage. 4mm shallow ulceration with some purulent discharge dorsal medial aspect of proximal second left toe. No swelling or redness of the toe beyond small surrounding border. Discharge Data Studies Completed and Pending Completed Studies During Hospitalization Category Date Time Status CT facial bones w con [id number] Stat Cat Scan 05/28/22 13:40 Completed CXRP [XR chest 1V portable [id number]] Routine Exams 05/28/22 17:39 Completed US soft tissue/extremity [id number] Routine Ultrasound 05/29/22 13:24 Completed Pending at discharge Category Date Time Status Blood Culture Stat Lab 05/28/22 17:12 Results HIV RNA (PCR) Quant Routine Lab 05/30/22 01:30 Received Monkeypox Virus DNA, QL PCR Routine Lab 05/28/22 22:10 Received Viral Culture Body Flds,Tissue Routine Lab 05/28/22 22:10 Received Wound Culture and Gram Stain Routine Lab 05/28/22 22:10 Results Wound Culture and Gram Stain Routine Lab 05/31/22 11:21 Received Radiology Impressions Face CT 05/28/22 13:40 IMPRESSION: 1. Significant soft tissue inflammation without an abscess centered along the RIGHT upper lip. 2. No underlying dental caries identified. 3. No sinus disease. 4. Small level 1 and level 2 lymph nodes. Chest X-Ray 05/28/22 17:39 IMPRESSION: Unremarkable chest radiograph. Soft Tissue Ultrasound 05/29/22 13:24 IMPRESSION: 1. No abscess. 2. There is a small phlegmonous with a soft tissue tract in the LEFT lower quadrant subcutaneous soft tissue. Phlegmonous collection measures 1.1 x 0.6 cm. Laboratory Results WBC 14.8 10^3/uL (4.0-10.0) H 05/30/22 01:30 RBC 5.37 10^6/uL (4.1-5.3) H 05/30/22 01:30 Hgb 16.3 g/dL (11.7-16.6) 05/30/22 01:30 Hct 50.5 % (42.0-52.0) 05/30/22 01:30 MCV 94.0 fl (80-94) 05/30/22 01:30 MCH 30.4 pg (28.0-34.0) 05/30/22 01:30 MCHC 32.3 g/dL (30.0-36.0) 05/30/22 01:30 RDW 12.1 % (12.1-15.1) 05/30/22 01:30 Plt Count 250 10^3/cmm (130-400) 05/30/22 01:30 MPV 10.1 fL (7.4-10.4) 05/30/22 01:30 Neut % (Auto) 71.5 % 05/30/22 01:30 Lymph % (Auto) 18.5 % 05/30/22 01:30 Snyder % (Auto) 7.6 % 05/30/22 01:30 Eos % (Auto) 1.5 % 05/30/22 01:30 Baso % (Auto) 0.3 % 05/30/22 01:30 Neut # (Auto) 10.61 10^3/uL (1.8-7.7) H 05/30/22 01:30 Lymph # (Auto) 2.7 10^3/uL (0.8-4.8) 05/30/22 01:30 Snyder # (Auto) 1.1 10^3/uL (0.2-0.9) H 05/30/22 01:30 Eos # (Auto) 0.2 10^3/uL (0.0-0.8) 05/30/22 01:30 Baso # (Auto) 0.0 10^3/uL (0.0-0.1) 05/30/22 01:30 Nucleated RBC % (auto) 0 % 05/30/22 01:30 Nucleated RBCs # 0.0 /100WBC 05/30/22 01:30 Sodium 139 mmol/L (136-145) 05/30/22 01:30 Potassium 3.9 mmol/L (3.5-5.1) 05/30/22 01:30 Chloride 103 mmol/L (98-107) 05/30/22 01:30 Carbon Dioxide 25 mmol/L (22-29) 05/30/22 01:30 Anion Gap 14.9 (5-19) 05/30/22 01:30 BUN 13 mg/dL (6-20) 05/30/22 01:30 Creatinine 0.6 mg/dL (0.7-1.2) L 05/30/22 01:30 GFR Calculation 152.4 mL/min (90-130) H 05/30/22 01:30 Glucose 154 mg/dL (65-115) H 05/30/22 01:30 Estimat Average Glucose 117 05/28/22 13:16 Hemoglobin A1c 5.7 % (4.0-6.0) 05/28/22 13:16 Calculated Osmolality 291 mOsm/kg (285-295) 05/30/22 01:30 Lactic Acid 1.9 mmol/L (0.5-2.2) 05/28/22 20:28 Calcium 8.7 mg/dL (8.5-10.5) 05/30/22 01:30 Total Bilirubin 0.5 mg/dL (0.15-1.2) 05/30/22 01:30 AST 12 U/L (0-40) 05/30/22 01:30 ALT 42 U/L (0-41) H 05/30/22 01:30 Alkaline Phosphatase 72 U/L (40-130) 05/30/22 01:30 C-Reactive Protein 3.0 mg/L (0.0-4.9) 05/28/22 15:02 Total Protein 6.3 g/dL (6.6-8.7) L 05/30/22 01:30 Albumin 3.3 g/dL (3.5-5.2) L 05/30/22 01:30 Globulin 3.0 g/dL (1.3-4.6) 05/30/22 01:30 Vancomycin Trough 10.1 ug/mL (10-15) 05/30/22 01:30 HIV-1 RNA copies/mL Cancelled 05/28/22 Unknown HIV-1 RNA (PCR) log10 Cancelled 05/28/22 Unknown HIV 1&2 Ab & HIV 1 Ag Non-reactive (Non-Reactiv) 05/28/22 20:28 HIV 1&2 Antibody Non-reactive (Non-Reactiv) 05/28/22 20:28 Vitals Last Vital Signs Temp 97.9 F 06/01/22 10:27 Pulse 86 06/01/22 10:27 Resp 18 06/01/22 10:27 BP 154/92 06/01/22 10:27 Pulse Ox 97 06/01/22 10:27 O2 Del Method 06/01/22 08:00 Discharge Plan Discharge Patient Disposition: Home Condition: Stable Prescriptions: New acetaminophen 325 mg Tablet 650 mg PO Q6H PRN (Reason: Mild/Mod Pain Or Temp >/= 101) Qty: 60 0RF nicotine 14 mg/24 hr Patch 24 Hour 1 patch transdermal Q24H Qty: 30 3RF hydrocodone-acetaminophen 5-325 mg Tablet 1 tab PO Q6H PRN (Reason: Moderate Pain) Qty: 14 0RF ibuprofen 600 mg Tablet 600 mg PO Q6H PRN (Reason: Moderate Pain) Qty: 30 1RF nicotine (polacrilex) 4 mg Lozenge 4 mg mucous membrane Q2H PRN (Reason: Nicotine Cravings) Qty: 90 0RF Bactrim DS 800-160 mg tablet 1 tab PO BID 10 Days Qty: 20 0RF Continued cyclobenzaprine 10 mg tablet 10 mg PO TID PRN (Reason: Muscle Spasm) Discontinued sulfamethoxazole-trimethoprim [Bactrim DS] 800-160 mg tablet 1 tab PO BID 10 Days Qty: 20 0RF prednisone 20 mg tablet 20 mg PO TID Qty: 15 0RF Rx Instructions: 1 p.o. 3 times daily x3 days, 1 p.o. twice daily x2 days, 1 p.o. daily x2 days hydroxyzine HCl 25 mg tablet 25 mg PO QID PRN (Reason: itching/swelling) Qty: 20 0RF Discharge Orders: Discharge Order (Routine); Ordered 06/01/22 Ordered By: Low Celis Referrals: AKASH Freire [Other] - 06/06/22 10:15 am [facility] [Provider Group] (Multifocal pustules) Wound Care [Provider Group] - 4-7 days Discharge Diet: Soft Mechanical Discharge Activity: Increase activity as tolerated and Return to work/school after cleared by PCP/Specialist Patient Instructions: Sulfamethoxazole/Trimethoprim (By mouth), MRSA (Methicillin-Resistant Staphylococcus Aureus) (GEN), Hepatitis C (GEN), Opioid Safety Activity Restrictions/Additional Instructions: Please make sure to follow-up with your primary provider for reassessment and healing of wounds and swelling in your lip, wounds in your abdomen and wound in your second left toe. Continue with mechanical soft/ground meats diet, avoid injuring your lip while chewing, avoid picking at it. Apply emollient barrier cream to any dry skin. Wash daily with soap and water dry and apply Hydrofera Blue to second left toe wound, cover with adhesive dressing. Follow-up with wound care. For MRSA infection complete antibiotic course with Bactrim. We discussed with your primary doctor to follow-up regarding pending blood cultures which so far have been negative. Continue to avoid any injection drug use as this may introduce infection into your bloodstream. In case of worsening fevers, any additional wounds or any other concerning symptoms, seek medical attention immediately as this may indicate bloodstream infection which may have severe disabling or life- threatening consequences. Please follow-up with your addiction counselor and make sure to discuss regarding your recent relapse. Due to risk of addiction with opioids, as discussed use only in case pain not responsive to Tylenol, ibuprofen, other conservative measures, discontinue use as soon as not necessary and dispose of any remaining medication. Some of the remaining studies that were sent including viral culture, as well as test for monkey pox are still pending. Please follow-up with your primary doctor regarding results at next appointment. You may be called with the results. It is less likely that your condition is due to monkey pox, however, until the test results are available for now please maintain isolation. Return to work only after cleared by your primary provider. Follow-up with dermatology regarding multifocal pustular wounds. At follow-up also revisit with your primary provider regarding hepatitis C and referral for treatment. Continue to work to try to quit smoking. Discharge Attestations Time Spent in Discharge Care*: greater than 30 min Quality Metrics Clinical Quality Measures [ No reported AMI, CVA or VTE this stay] Coding Level of Care Code Acute Chg FW DC note Diagnoses Cellulitis of lip K13.0 Pustular lesion L08.9 Smoking F17.200 H/O intravenous drug use in remission Z87.898
[2022-06-01 11:43] VITALS: BP 150/81; PULSE 100; RESP 18; TEMP 36.6; O2SAT 95
[2022-06-01 21:47] LABS: HIV RNA (CPY/ML) NOT DETECTED (NOT DETECTED); HIV RNA LOG NOT DETECTED copies/mL (NOT DETECTED)
[2022-06-03 21:08] LABS: Monkeypox Anatomic Location Abdomen; Monkeypox Specimen Type NOT GIVEN
== END 2022-06-01 12:26 | disposition home or self-care (01) | DRG 159 ==
LOC: ER 13:50 → MEDSURG 16:47
PROVIDERS: Admitting Provider Internal Medicine; Emergency Provider Family Medicine; Visit Provider Internal Medicine
DX: K13.0 Diseases of lips (principal); B95.62 Methicillin resistant Staphylococcus aureus infection as the cause of diseases classified elsewhere; F17.200 Nicotine dependence, unspecified, uncomplicated; B19.20 Unspecified viral hepatitis C without hepatic coma; F15.11 Other stimulant abuse, in remission; L98.8 Other specified disorders of the skin and subcutaneous tissue; L97.529 Non-pressure chronic ulcer of other part of left foot with unspecified severity; R73.9 Hyperglycemia, unspecified; T38.0X5A Adverse effect of glucocorticoids and synthetic analogues, initial encounter
CPT/HCPCS: 36415; 70487; 71045; 76882; 80048; 80053; 80202; 83036; 83605; 85025; 86140; 87040; 87070; 87075; 87077; 87186; 87205; 87252; 87536; 87593; 87806; 99285; J0692; J2270; J3370; J7050; Q9967